=== PATIENT | female | born 1930 | race Caucasian/White ===

== ENCOUNTER 2016-08-20 09:02 | Inpatient (IN) | payer MEDICARE ==
[2016-08-20] MEDS ORDERED: Albuterol/Ipratropium NEB.SOL* Albuterol 2.5 MG/Ipratropium 0.5 MG 3 ML INH ONE ×2 (09:36→10:58)
--- NOTE | 2016-08-20 09:43 | ED ---
Shortness of Breath - HPI Summary HPI Summary: Patient presents for delayed evaluation of shortness of breath with preceding URI/nasal congestion for the last 6 days. Denies any positional or exertional compnent, systemic symptoms, allev factors attempted, recent antibiotics or antipyretics. Several sick contacts at the nursing facility. She was slightly confused and so the called EMS this morning. The nasal cannula made her feel better, so they deferred ED transport. - History of Current Complaint Chief Complaint: EDWeakness Time Seen by Provider: 08/20/16 09:21 Hx Obtained From: Patient, Family/Green Plumber Onset/Duration: Gradual Onset Timing: Constant Current Severity: Moderate Associated Signs & Symptoms: Cough (Productive), Wheezing - Allergy/Home Medications Allergies/Adverse Reactions: Allergies Allergy/AdvReac Type Severity Reaction Status Date / Time Acetaminophen [From Tylenol] Allergy Severe Vomiting Verified 08/20/16 09:14 Levofloxacin [From Levaquin] Allergy Severe Nausea Verified 08/20/16 09:14 Metronidazole [From Flagyl] Allergy Severe Nausea Verified 08/20/16 09:14 Amoxicillin Allergy Intermediate Hives Verified 08/20/16 09:14 PMH/Surg Hx/FS Hx/Imm Hx Endocrine/Hematology History: Denies: Hx Diabetes, Hx Thyroid Disease Cardiovascular History: Reports: Hx Coronary Artery Disease, Hx Hypertension, Hx Syncope Denies: Hx Pacemaker/ICD Respiratory History: Denies: Hx Asthma, Hx Chronic Obstructive Pulmonary Disease (COPD) GI History: Denies: Hx Ulcer Musculoskeletal History: Reports: Hx Arthritis, Hx Osteoporosis, Other Musculoskeletal History - both hips replaced Sensory History: Reports: Hx Hearing Aid Psychiatric History: Denies: Hx Panic Disorder - Surgical History Surgery Procedure, Year, and Place: both hips,cataracts,finger,appy. Infectious Disease History: No Infectious Disease History: Denies: Hx Clostridium Difficile, Hx Hepatitis, Hx Human Immunodeficiency Virus (HIV), Hx of Known/Suspected MRSA, Hx Shingles, Hx Tuberculosis, Traveled Outside the [place] in Last 30 Days - Social History Substance Use Type: Reports: None Hx Tobacco Use: No Smoking Status (MU): Never Smoked Tobacco Review of Systems Constitutional: Negative Negative: Fever, Chills Eyes: Negative Positive: Other - Clear nasal congestion Cardiovascular: Negative Negative: Palpitations, Chest Pain Positive: Shortness Of Breath, Cough Gastrointestinal: Negative Negative: Abdominal Pain, Vomiting, Diarrhea, Nausea Musculoskeletal: Negative Negative: Arthralgia, Myalgia Skin: Negative Neurological: Negative Positive: Weakness. Negative: Headache, Syncope All Other Systems Reviewed And Are Negative: Yes Physical Exam Triage Information Reviewed: Yes Vital Signs On Initial Exam: Initial Vitals Temp Pulse Resp BP Pulse Ox 99.6 F 64 16 115/52 94 08/20/16 09:04 08/20/16 09:04 08/20/16 09:04 08/20/16 09:04 08/20/16 09:04 Vital Signs Reviewed: Yes Appearance: Positive: Well-Appearing, No Pain Distress, Well-Nourished. Negative: Ill-Appearing Skin: Positive: Warm, Skin Color Reflects Adequate Perfusion, Dry Head/Face: Positive: Normal Head/Face Inspection Eyes: Positive: Normal, EOMI, MIRTHA, Conjunctiva Clear. Negative: Discharge ENT: Positive: Hearing grossly normal, Pharyngeal erythema, Nasal congestion, TM dull. Negative: Nasal drainage, Tonsillar swelling, Tonsillar exudate, Trismus, Muffled/hoarse voice Neck: Positive: Supple, Nontender, No Lymphadenopathy. Negative: Nuchal Rigidity, Enlarged Nodes @ Respiratory/Lung Sounds: Positive: Breath Sounds Present, Wheezes. Negative: Unable to speak in full sentences Cardiovascular: Positive: Normal, RRR, Pulses are Symmetrical in both Upper and Lower Extremities Abdomen Description: Positive: Nontender, No Organomegaly Musculoskeletal: Positive: Normal, Strength/ROM Intact Neurological: Positive: Normal, Sensory/Motor Intact, Alert, Oriented to Person Place, Time, CN Intact II-III, Reflexes Intact, NV Bundle Intact Distally, Normal Gait. Negative: Disoriented, Slurred Speech, Dysphagia Diagnostics - Vital Signs Vital Signs Temp Pulse Resp BP Pulse Ox 08/20/16 09:04 99.6 F 64 16 115/52 94 - Laboratory Result Diagrams: 08/20/16 10:00 08/20/16 10:00 Lab Statement: Any lab studies that have been ordered have been reviewed, and results considered in the medical decision making process. - EKG HR 63 in Normal Sinus Rhythm. No inverted T waves. Normal MA/QRS/QTC Cardiac Rate: NL EKG Rhythm: Sinus Rhythm Course/Dx - Diagnoses Differential Diagnosis/HQI/PQRI: Positive: Bronchitis, CHF, TN, Pneumonia, Other - Primary concern for URI induced bronchitis with bronchospasm; however, with CAD history will evaluate for ACS and occult pneumonia. No focal lung sounds, recent antibiotics or antipyretics to mask classic presentation. Nontoxic appearing and not confused on exam. Minimally dehydrated on physical exam. Provider Diagnoses: Hypoxia, Acute hyponatremia, Bronchitis with bronchospasm - Physician Notifications Discussed Care of Patient With: 11:[address] Lewis, the patient's PCP, paged to discuss the acute hyponatremia. This is unclear etiology, but lower than previous 1 year of 125 esequiel. He felt as if patient should be admitted for the shortness of breath and acute hyponatremia. We reviewed the records from Dr. Ted Poe of the [facility] in [place] with last visit in Apr 2016. We also discussed the lower sodium and possible HCTZ cause and to hold and monitor in patient. After reviewing the lab results and CT, as well as PCP discussion, no change to the HCTZ prescription in 3 years. We discussed that the intermittent confusion earlier today may have been from the hypoxia or hyponatremia, or neither. She agreed to admission. 11:58a Dr. Newton to admit after discussion of PCP records/Neurobiologist records, lack of medication changes to account for hyponatremia, requiring oxygen for the hypoxia and lack of PE on CTA. He agrees to plan of care. Time Discussed With Above Provider: 11:09 Instructed by Provider To: Admit As Inpatient - Critical Care Time Critical Care Time: 30-74 min - Hypoxia requiring supplemental oxygen. Acute hyponatremia that was discussed with PCP and Hospitalist. Discharge - Discharge Plan Condition: Stable Disposition: ADMITTED TO [facility]
--- NOTE | 2016-08-20 10:07 | RAD ---
INDICATION: Congestion COMPARISON: April 04, 2013 TECHNIQUE: PA and lateral dual-energy views were obtained. FINDINGS: Bones/Soft Tissues: There are no acute bony findings. Cardiomediastinal: The cardiomediastinal silhouette is normal. Lungs: There are no infiltrates. Pleura: There are no pleural effusions. Other: None IMPRESSION: NO ACTIVE DISEASE.
[2016-08-20 10:22] LABS: Hematocrit 39 % (35-47); Mean Corpuscular HGB Conc 34 g/dl (31-36); Mean Corpuscular Hemoglobin 31 pg (27-31); Mean Corpuscular Volume 92 fL (80-97); Mean Platelet Volume 9 um3 (7.4-10.4); Red Blood Count 4.19 10^6/ul (4.0-5.4); Red Cell Distribution Width 13 % (10.5-15); White Blood Count 12.3 10^3/ul (3.5-10.8)
[2016-08-20 10:39] LABS: BUN/Creatinine Ratio 19.5 (8-20); Calcium 9.8 mg/dL (8.6-10.3); EGFR African American 91.8 (>60); EGFR Non-African American 71.4 (>60); Potassium 3.7 mmol/L (3.5-5.0)
[2016-08-20 10:40] LABS: Troponin I 0.01 ng/mL (<0.04)
[2016-08-20] MEDS ORDERED: Iohexol 350* (CONTRAST) 500 ML MDV IV ONE (10:51)
--- NOTE | 2016-08-20 11:40 | RAD ---
Indication: Shortness of breath, evaluate for pulmonary emboli. CTA of the chest was performed after IV contrast administration. Coronal and sagittal reconstructed images were obtained. Administered 63.0 ml of OMNIPAQUE 350 mgi/ml was injected intravenously. Inferior thyroid lobes are unremarkable. No mediastinal or hilar adenopathy is noted. There is cardiomegaly without pericardial effusion. The pulmonary arterial tree is well opacified. There are no filling defects present to suggest pulmonary embolus. The heart demonstrates no pericardial effusion. Atherosclerotic aorta is noted. No evidence of aortic dissection is noted. Heart demonstrates no pericardial effusion. The trachea and major bronchi appear patent. The lung barbosa demonstrate some dependent changes in the right lung base with suggestion of scarring. No alveolar consolidation is noted. The visualized abdominal organs are otherwise unremarkable were visualized. IMPRESSION: No evidence of pulmonary emboli is noted. No evidence of aortic dissection is noted.
[2016-08-20] MEDS ORDERED: Acetaminophen TAB* 325 MG PO PRN (11:57)
[2016-08-20] MEDS ORDERED: Ondansetron INJ* 2 MG/ML VIAL IV PRN (11:57)
[2016-08-20] MEDS ORDERED: traMADol TAB* 50 MG PO PRN (12:26)
[2016-08-20] MEDS ORDERED: Levalbuterol HFA INHALER* 1 PUFF MDI INH PRN (12:26)
[2016-08-20] MEDS ORDERED: NS 0.9% 1000 ML* 1,000 ML IV SCH (12:30)
[2016-08-20] MEDS ORDERED: Albuterol/Ipratropium NEB.SOL* Albuterol 2.5 MG/Ipratropium 0.5 MG 3 ML INH PRN (12:53)
[2016-08-20 13:09] LABS: Urine Bacteria Absent (Absent); Urine Bilirubin Negative (Negative); Urine Glucose Negative (Negative); Urine Nitrite Negative (Negative)
[2016-08-20 13:41] LABS: TSH (Thyroid Stimulating Horm) 3.32 mcIU/mL (0.34-5.60)
[2016-08-20] MEDS: Heparin VIAL(*) 5000 UNITS/ML VIAL (FIVE THOUSAND) SUBCUT SCH ×2 (14:22→22:20)
--- NOTE | 2016-08-20 16:46 | HP ---
HISTORY AND PHYSICAL: DATE OF ADMISSION: 08/20/16 PRIMARY CARE PROVIDER: Dr. Cadena. ATTENDING PHYSICIAN WHILE IN THE HOSPITAL: Dr. Denzel Newton* (report being dictated by Thalia Terry NP) CHIEF COMPLAINT: 1. Cough. 2. Sore throat. 3. Rhinorrhea. HISTORY OF PRESENT ILLNESS: Ms. Mazariegos is an 86-year-old female patient that over the last week she started out having rhinorrhea. She said she gets a yearly cold and this feels very similar to her symptoms, which she has had in the past. She carries a history of hypertension, glaucoma, hyperlipidemia, CAD , and history of GA. She states that last week she has progressed having rhinorrhea, now last couple of days having sore throat, temperature 99.6, she has been coughing, it has been a clear productive cough. She has been hearing upper wheezing at times. She states she has been taking respiratory treatments at home that she has access to which have been helping her. She was concerned today, however, because she was still continuing to cough, the sore throat was not getting any better. She felt that it was most likely still a viral illness , but she was concerned and her was concerned and urged her to come to the ER. She states she has been trying to drink fluid. In addition to this, she has also been taking her hydrochlorothiazide as prescribed. She has been drinking tea at night, trying over- the-counter cough suppressants, but this has not been helping her. She also states that she has noted that she has been feeling weak as well and she also felt that she may have been little confused last night, so these were the reasons why she came into the ER. She does state that it hurts to cough in her chest. She denies having any abdominal pain. She had one episode of vomiting this morning. She is evaluated in the ER, it was found that she had a low sodium, and the hospitalist service was asked to evaluate for admission. PAST MEDICAL HISTORY: Significant for: 1. Hypertension. 2. Hyperlipidemia. 3. Glaucoma. 4. CAD. 5. GA. PAST SURGICAL HISTORY: She has had: 1. Bilateral hip replacements. 2. Appendectomy. 3. Tonsillectomy. 4. Cataracts. 5. Cardiac catheterization. HOME MEDICATIONS: Include: 1. Aerospan 2 puffs inhaled b.i.d. 2. Crestor 20 mg at bedtime. 3. Calcium and vitamin D 1 tablet p.o. twice a day. 4. Levocetirizine 5 mg a day. 5. Tylenol 650 mg p.o. daily as needed. 6. Valsartan/hydrochlorothiazide 1 tab p.o. daily. 7. Xopenex 2 puffs inhaled every 4 hours. 8. Zantac 75 mg p.o. daily. 9. Tramadol 50 mg every 8 hours as needed. 10. Debrox 5 drops both ears monthly. 11. Lumigan 1 drop right eye daily. 12. Nitro 0.4 mg sublingual q.5 minutes p.r.n. chest pain. 13. Estrace vaginal application 0.5 twice a week. 14. Ipratropium bromide 0.06% both nares every 8 hours. 15. Timolol 1 drop both eyes daily. 16. Multivitamin 1 tablet daily. 17. Toprol-XL 50 mg daily. 18. Aspirin 81 mg daily. ALLERGIES TO MEDICATIONS: Include TYLENOL, LEVAQUIN, FLAGYL, AMOXICILLIN. FAMILY HISTORY: Mother had dementia. Father had a history of GA and TIA. SOCIAL HISTORY: She does not smoke. She does not drink. There is no drug use. Surrogate decision maker is her . She lives at [facility]. REVIEW OF SYSTEMS: There is no documented fever. She denied having any significant weight change. There was no double vision. There is no ear discharge. There was rhinorrhea. There is sore throat. There was a cough. There is dyspnea on exertion, chest pain with cough. There was one episode of nausea and vomiting. No abdominal pain. No dysuria, no frequency. No seizure, no loss of consciousness. No pruritus, no skin ulceration. Review of 14 systems completed, all others negative. PHYSICAL EXAMINATION GENERAL: At this time, Ms. Mazariegos is an 86-year-old female patient. She appears to be well nourished, does not appear to be in any acute distress. VITAL SIGNS: Reveal blood pressure 134/60, pulse is 71, respirations 14, O2 sat 99%, temperature 99.6. HEENT: Head: Atraumatic, normocephalic. Eyes: Sclerae anicteric and not pale. Throat: Oral mucosa appears to be moist. No oropharyngeal erythema. NECK: Supple. LUNGS: Clear to auscultation bilaterally. No wheezes, rales, or rhonchi. HEART: Sounds S1 and S2. Regular rate and rhythm. No murmurs, rubs, or gallops. ABDOMEN: Soft, flat, and nontender. Bowel sounds are present. EXTREMITIES: Pulses 2+ throughout. No peripheral edema. NEUROLOGICAL: She is awake, alert, and oriented x3. No gross focal deficits. SKIN: Grossly intact. DIAGNOSTIC STUDIES/LAB DATA: Today revealed WBC of 12.3, RBC 4.19, hemoglobin 13.0, hematocrit 39, platelet count of 232. Sodium 120, potassium 3.7, chloride 85, bicarb 26, BUN 15, creatinine 0.77, glucose 126, calcium 9.8. Trops 0.01. BNP is 560. Influenza is negative. She had a chest thorax CTA, which showed no evidence of pulmonary emboli is noted. No evidence of aortic dissection. She had a chest x-ray as well today when on my review, I did not appreciate any acute infiltrates or pulmonary vascular congestion. Radiology read it as no acute disease. EKG today showed a normal sinus rhythm, rate of 63. No ST elevations or T-wave inversions. Old medical records were reviewed. ASSESSMENT AND PLAN: Ms. Mazariegos is an 86-year-old female patient coming in today with complaints of weakness, cough, rhinorrhea. She will be admitted under observation status for: 1. Upper respiratory infection. At this point, I suspect she has bronchitis which is probably viral. She does have a slight white count, but she has been afebrile. I think at this point we can hold on antibiotics. Should she spike a fever, I then have a low threshold to start her on some antibiotics, but the chest x-ray and CTA are negative. I will continue with supportive care, p.r.n. nebs, and continue to follow. Probably a viral illness and needs to run its course. 2. Hyponatremia. It is probably multifactorial, probably secondary to dehydration in setting of an acute illness. In addition to this, she has also been taking hydrochlorothiazide, we are going to stop this. We will check serum osmol, urine osmol, urine sodium, TSH, and cortisol, and we will treat her appropriately. I am going to give her 2 L of saline and we will go ahead and repeat her BMP later today to make sure her sodium is rising appropriately. I do not think she needs 3% at this point. 3. Hypertension. Continue meds as prescribed. 4. Glaucoma. Continue meds as prescribed. 5. Hyperlipidemia. Continue meds as prescribed. 6. Coronary artery disease. Continue her metoprolol, aspirin, and her Crestor. 7. DVT prophylaxis. She will be placed on heparin subcu. 8. Code status. Full. She actually wishes to be a DNR. She states she has a form filled out. 9. Fluids, electrolytes, and nutrition. She can have a heart-healthy diet. TIME SPENT: On the admission was 60 minutes, greater than half the time was spent [id number] with the patient obtaining history and physical, the other half of the time was spent going over the plan of care with the patient and implementing the plan of care. I did discuss the plan of care with my attending , Dr. Newton; he is in agreement. THALIA TERRY NP CC: Dr. Cadena * [id number]/CPS #: [id number] LETY
[2016-08-20 19:11] LABS: Potassium 3.5 mmol/L (3.5-5.0)
[2016-08-20 19:44] LABS: BUN/Creatinine Ratio 18.2 (8-20); Calcium 8.8 mg/dL (8.6-10.3); EGFR African American 78.7 (>60); EGFR Non-African American 61.2 (>60)
[2016-08-20] MEDS: Atorvastatin* 40 MG TAB PO SCH (20:21)
[2016-08-20] MEDS: Latanoprost 0.005%* 2.5 ml BTL RIGHT EYE SCH (20:26)
[2016-08-20] MEDS: FLUNISOLIDE INH SCH (20:42)
[2016-08-21 00:44] LABS: BUN/Creatinine Ratio 18.6 (8-20); Calcium 8.7 mg/dL (8.6-10.3); EGFR African American 102.5 (>60); EGFR Non-African American 79.7 (>60); Potassium 3.1 mmol/L (3.5-5.0)
[2016-08-21 05:58] LABS: Hematocrit 31 % (35-47); Hemoglobin 10.6 g/dl (12.0-16.0); Mean Corpuscular HGB Conc 34 g/dl (31-36); Mean Corpuscular Hemoglobin 31 pg (27-31); Mean Corpuscular Volume 92 fL (80-97); Mean Platelet Volume 9 um3 (7.4-10.4); Red Blood Count 3.36 10^6/ul (4.0-5.4); Red Cell Distribution Width 13 % (10.5-15); White Blood Count 9.5 10^3/ul (3.5-10.8)
[2016-08-21 06:02] LABS: Add Diff/Slide Review? Slide Review Added; Comments Flag Yes
[2016-08-21 06:17] LABS: BUN/Creatinine Ratio 17.2 (8-20); Calcium 8.6 mg/dL (8.6-10.3); EGFR African American 113.7 (>60); EGFR Non-African American 88.4 (>60); Potassium 3.1 mmol/L (3.5-5.0)
[2016-08-21] MEDS: Heparin VIAL(*) 5000 UNITS/ML VIAL (FIVE THOUSAND) SUBCUT SCH ×3 (06:23→20:26)
[2016-08-21] MEDS: Aspirin EC Low Dose* 81 MG TAB.EC PO SCH (09:27)
[2016-08-21] MEDS: Metoprolol Succinate XL TAB* 50 MG PO SCH (09:27)
[2016-08-21] MEDS: Valsartan TAB* 160 MG PO SCH (09:27)
[2016-08-21] MEDS: Famotidine TAB* 20 MG PO SCH (09:27)
[2016-08-21] MEDS: Timolol 0.5% OPTH.SOL* BTL BOTH EYES SCH (09:29)
[2016-08-21] MEDS: FLUNISOLIDE INH SCH ×2 (09:31→20:25)
[2016-08-21] MEDS ORDERED: Docusate CAP* 100 MG PO PRN (15:36)
--- NOTE | 2016-08-21 15:43 | PN ---
Subjective Date of Service: 08/21/16 Interval History: Pt is feeling better. She notes that her cough is less today. She still describes a hacking cough that originates in her throat. No sputum. She feels slightly spacey. Objective Active Medications: Acetaminophen (Tylenol Tab*) 650 mg PO Q4H PRN PRN Reason: FEVER/PAIN Aspirin (Aspirin Ec Low Dose*) 81 mg PO DAILY [facility] Last Admin: 08/21/16 09:27 Dose: 81 mg Atorvastatin Calcium (Lipitor*) 40 mg PO BEDTIME [facility] Last Admin: 08/20/16 20:21 Dose: 40 mg Docusate Sodium (Colace Cap*) 100 mg PO BID PRN PRN Reason: CONSTIPATION Famotidine (Pepcid Tab*) 10 mg PO DAILY [facility] Last Admin: 08/21/16 09:27 Dose: 10 mg Heparin Sodium (Porcine) (Heparin Vial(*)) 5,000 units SUBCUT Q8HR [facility] Last Admin: 08/21/16 14:11 Dose: 5,000 units Latanoprost (Xalatan 0.005%*) 1 drop RIGHT EYE 2100 [facility] PRN Reason: Protocol Last Admin: 08/20/16 20:26 Dose: Not Given Levalbuterol HCl (Xopenex Hfa Inhaler*) 2 puff INH Q4HR PRN PRN Reason: SHORTNESS OF BREATH Metoprolol Succinate (Toprol Xl Tab*) 50 mg PO DAILY [facility] Last Admin: 08/21/16 09:27 Dose: 50 mg Non-Formulary Medication (Flunisolide Hfa [Aerospan]) 2 puff INH BID [facility] Last Admin: 08/21/16 09:31 Dose: Not Given Ondansetron HCl (Zofran Inj*) 4 mg IV Q4H PRN PRN Reason: NAUSEA/VOMITING Timolol Maleate (Timoptic 0.5% Opth*) 1 drop BOTH EYES DAILY [facility] Last Admin: 08/21/16 09:29 Dose: 1 drop Tramadol HCl (Ultram*) 50 mg PO Q8HR PRN PRN Reason: PAIN Valsartan (Diovan Tab*) 160 mg PO DAILY [facility] Last Admin: 08/21/16 09:27 Dose: Not Given Vital Signs 08/20/16 08/20/16 08/20/16 16:00 16:16 20:00 Temperature 98.1 F Pulse Rate 62 71 Respiratory 16 16 Rate Blood Pressure 107/54 (mmHg) O2 Sat by Pulse 99 98 91 Oximetry 08/20/16 08/20/16 08/21/16 20:24 23:41 00:00 Temperature 98.4 F 99.0 F Pulse Rate 69 71 Respiratory 20 16 Rate Blood Pressure 119/52 112/45 (mmHg) O2 Sat by Pulse 98 98 98 Oximetry 08/21/16 08/21/16 08/21/16 04:31 08:00 08:10 Temperature 98.3 F 98.4 F Pulse Rate 67 72 Respiratory 15 16 18 Rate Blood Pressure 113/42 115/52 (mmHg) O2 Sat by Pulse 97 96 Oximetry 08/21/16 15:18 Temperature 99.2 F Pulse Rate 67 Respiratory 20 Rate Blood Pressure 117/55 (mmHg) O2 Sat by Pulse 98 Oximetry Oxygen Devices in Use Now: Nasal Cannula - 2L-98% Appearance: Elderly female sitting up in bed, NAD Eyes: No Scleral Icterus Ears/Nose/Mouth/Throat: Mucous Membranes Moist Respiratory: Symmetrical Chest Expansion and Respiratory Effort, Clear to Auscultation Cardiovascular: NL Sounds; No Murmurs; No JVD, RRR, No Edema Abdominal: NL Sounds; No Tenderness; No Distention Extremities: No Clubbing, Cyanosis Skin: No Rash or Ulcers, No Nodules or Sclerosis Neurological: Alert and Oriented x 3 Result Diagrams: 08/21/16 05:35 08/21/16 05:35 Microbiology and Other Data: Microbiology 08/20/16 12:47 Urine Culture - Final Urine Assess/Plan/Problems-Billing Ms Mazariegos is an 86 yo F who has a h/o HTN, chronic hyponatremia (~130), hyperlipidemia and CAD who presented to the ER with c/o cough, sore throat and rhinnorhea, she was admitted for hyponatremia. 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 Her Na level worsened with the administration of NS. She has since been placed on a fluid restriction. Continue to restrict to 1200ml/day. Follow up Na level tomorrow. Discontinue HCTZ all together. (2) URI (upper respiratory infection) Current Visit: Yes Status: Acute Code(s): J06.9 - ACUTE UPPER RESPIRATORY INFECTION, UNSPECIFIED SNOMED Code(s): 31066038 Comment: Likely viral URI. Improving despite withholding Abx. Continue symptomatic care. (3) HTN (hypertension) Current Visit: Yes Status: Acute Code(s): I10 - ESSENTIAL (PRIMARY) HYPERTENSION SNOMED Code(s): 86596338 Comment: BP is under good control despite being off her valsartan/HCTZ. Continue to monitor BP. (4) Hyperlipidemia Current Visit: Yes Status: Acute Code(s): E78.5 - HYPERLIPIDEMIA, UNSPECIFIED SNOMED Code(s): 45422892 Comment: Continue statin. (5) DVT prophylaxis Current Visit: Yes Status: Acute Code(s): WMU1791 - SNOMED Code(s): 284951891 Comment: SQ heparin (6) DNR (do not resuscitate) Current Visit: Yes Status: Acute
[2016-08-21] MEDS ORDERED: Saline NASAL SPRAY 0.65%* BTL BOTH NARES PRN (15:44)
[2016-08-21] MEDS ORDERED: Potassium Chlor TAB* 20 MEQ TAB.ER PO ONE (15:44)
[2016-08-21] MEDS: Atorvastatin* 40 MG TAB PO SCH (20:23)
[2016-08-21] MEDS: Latanoprost 0.005%* 2.5 ml BTL RIGHT EYE SCH (20:25)
[2016-08-22] MEDS: Heparin VIAL(*) 5000 UNITS/ML VIAL (FIVE THOUSAND) SUBCUT SCH ×3 (06:06→22:30)
[2016-08-22 06:16] LABS: BUN/Creatinine Ratio 19.7 (8-20); Calcium 8.8 mg/dL (8.6-10.3); EGFR African American 100.9 (>60); EGFR Non-African American 78.4 (>60); Potassium 3.6 mmol/L (3.5-5.0)
[2016-08-22] MEDS: Valsartan TAB* 160 MG PO SCH (08:28)
[2016-08-22] MEDS: Metoprolol Succinate XL TAB* 50 MG PO SCH (08:28)
[2016-08-22] MEDS: Aspirin EC Low Dose* 81 MG TAB.EC PO SCH (08:29)
[2016-08-22] MEDS: Famotidine TAB* 20 MG PO SCH (08:29)
[2016-08-22] MEDS: Timolol 0.5% OPTH.SOL* BTL BOTH EYES SCH (08:29)
[2016-08-22] MEDS: FLUNISOLIDE INH SCH ×2 (08:34→23:22)
--- NOTE | 2016-08-22 11:27 | PN ---
Subjective Date of Service: 08/22/16 Interval History: Pt is feeling well but still not quite at her baseline. No SOB. She has still been coughing some. No sputum. Objective Active Medications: Acetaminophen (Tylenol Tab*) 650 mg PO Q4H PRN PRN Reason: FEVER/PAIN Aspirin (Aspirin Ec Low Dose*) 81 mg PO DAILY [facility] Last Admin: 08/22/16 08:29 Dose: 81 mg Atorvastatin Calcium (Lipitor*) 40 mg PO BEDTIME [facility] Last Admin: 08/21/16 20:23 Dose: 40 mg Docusate Sodium (Colace Cap*) 100 mg PO BID PRN PRN Reason: CONSTIPATION Last Admin: 08/21/16 15:53 Dose: 100 mg Famotidine (Pepcid Tab*) 10 mg PO DAILY [facility] Last Admin: 08/22/16 08:29 Dose: 10 mg Heparin Sodium (Porcine) (Heparin Vial(*)) 5,000 units SUBCUT Q8HR [facility] Last Admin: 08/22/16 06:06 Dose: 5,000 units Latanoprost (Xalatan 0.005%*) 1 drop RIGHT EYE 2100 [facility] PRN Reason: Protocol Last Admin: 08/21/16 20:25 Dose: 1 drop Levalbuterol HCl (Xopenex Hfa Inhaler*) 2 puff INH Q4HR PRN PRN Reason: SHORTNESS OF BREATH Metoprolol Succinate (Toprol Xl Tab*) 50 mg PO DAILY [facility] Last Admin: 08/22/16 08:28 Dose: 50 mg Non-Formulary Medication (Flunisolide Hfa [Aerospan]) 2 puff INH BID [facility] Last Admin: 08/22/16 08:34 Dose: Not Given Ondansetron HCl (Zofran Inj*) 4 mg IV Q4H PRN PRN Reason: NAUSEA/VOMITING Sodium Chloride (Sodium Chloride 0.65% Nasal Hopkins*) 2 spray BOTH NARES Q4H PRN PRN Reason: dryness Timolol Maleate (Timoptic 0.5% Opth*) 1 drop BOTH EYES DAILY [facility] Last Admin: 08/22/16 08:29 Dose: 1 drop Tramadol HCl (Ultram*) 50 mg PO Q8HR PRN PRN Reason: PAIN Valsartan (Diovan Tab*) 160 mg PO DAILY [facility] Last Admin: 08/22/16 08:28 Dose: 160 mg Vital Signs 08/21/16 08/21/16 08/21/16 15:18 15:43 19:28 Temperature 99.2 F 97.9 F Pulse Rate 67 70 72 Respiratory 20 16 20 Rate Blood Pressure 117/55 109/53 (mmHg) O2 Sat by Pulse 98 99 99 Oximetry 08/21/16 08/21/16 08/22/16 20:00 23:27 00:00 Temperature 98.7 F Pulse Rate 74 Respiratory 20 16 Rate Blood Pressure 126/53 (mmHg) O2 Sat by Pulse 99 Oximetry 08/22/16 08:00 Temperature Pulse Rate Respiratory 18 Rate Blood Pressure (mmHg) O2 Sat by Pulse Oximetry Oxygen Devices in Use Now: Nasal Cannula - 2L-99% Appearance: Elderly female sitting up in bed, NAD Eyes: No Scleral Icterus Ears/Nose/Mouth/Throat: Mucous Membranes Moist Respiratory: Symmetrical Chest Expansion and Respiratory Effort, Clear to Auscultation Cardiovascular: NL Sounds; No Murmurs; No JVD, RRR, No Edema Abdominal: NL Sounds; No Tenderness; No Distention Extremities: No Clubbing, Cyanosis Skin: No Rash or Ulcers, No Nodules or Sclerosis Neurological: Alert and Oriented x 3 Result Diagrams: 08/21/16 05:35 08/22/16 05:08 Microbiology and Other Data: Microbiology 08/20/16 12:47 Urine Culture - Final Urine Assess/Plan/Problems-Billing Ms Mazariegos is an 86 yo F who has a h/o HTN, chronic hyponatremia (~130), hyperlipidemia and CAD who presented to the ER with c/o cough, sore throat and rhinnorhea, she was admitted for hyponatremia. 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 Na level slightly improved some today. Will continue 1200ml fluid restriction. Follow up Na level tomorrow AM. I do not feel comfortable sending her home today as her Na level is still just marginal. (2) URI (upper respiratory infection) Current Visit: Yes Status: Acute Code(s): J06.9 - ACUTE UPPER RESPIRATORY INFECTION, UNSPECIFIED SNOMED Code(s): 53105686 Comment: Likely viral URI. Improving. Continue symptomatic care. (3) HTN (hypertension) Current Visit: Yes Status: Acute Code(s): I10 - ESSENTIAL (PRIMARY) HYPERTENSION SNOMED Code(s): 58622333 Comment: BP is under good control. Continue valsartan. (4) Hyperlipidemia Current Visit: Yes Status: Acute Code(s): E78.5 - HYPERLIPIDEMIA, UNSPECIFIED SNOMED Code(s): 63060421 Comment: Continue statin. (5) DVT prophylaxis Current Visit: Yes Status: Acute Code(s): ONR9617 - SNOMED Code(s): 284696851 Comment: SQ heparin (6) DNR (do not resuscitate) Current Visit: Yes Status: Acute
[2016-08-22] MEDS ORDERED: Polyethylene Glycol 3350* 17 GM PACKET PO PRN (16:56)
[2016-08-22] MEDS: Atorvastatin* 40 MG TAB PO SCH (22:30)
[2016-08-22] MEDS: Latanoprost 0.005%* 2.5 ml BTL RIGHT EYE SCH (22:30)
[2016-08-23] MEDS: Heparin VIAL(*) 5000 UNITS/ML VIAL (FIVE THOUSAND) SUBCUT SCH (05:44)
[2016-08-23 06:42] LABS: BUN/Creatinine Ratio 27.1 (8-20); Calcium 8.6 mg/dL (8.6-10.3); EGFR African American 102.5 (>60); EGFR Non-African American 79.7 (>60); Potassium 3.8 mmol/L (3.5-5.0)
[2016-08-23 07:42] VITALS: BP 101/47
[2016-08-23] MEDS: Timolol 0.5% OPTH.SOL* BTL BOTH EYES SCH (09:43)
[2016-08-23] MEDS: Valsartan TAB* 160 MG PO SCH (09:43)
[2016-08-23] MEDS: Famotidine TAB* 20 MG PO SCH (09:43)
[2016-08-23] MEDS: Metoprolol Succinate XL TAB* 50 MG PO SCH (09:44)
[2016-08-23] MEDS: Aspirin EC Low Dose* 81 MG TAB.EC PO SCH (09:44)
[2016-08-23] MEDS: FLUNISOLIDE INH SCH (09:52)
--- NOTE | 2016-08-23 10:49 | PN ---
Subjective Date of Service: 08/23/16 Interval History: Pt is feeling well. She feels ready to go home. She states her cough has improved but is still present. Objective Active Medications: Acetaminophen (Tylenol Tab*) 650 mg PO Q4H PRN PRN Reason: FEVER/PAIN Aspirin (Aspirin Ec Low Dose*) 81 mg PO DAILY [facility] Last Admin: 08/23/16 09:44 Dose: 81 mg Atorvastatin Calcium (Lipitor*) 40 mg PO BEDTIME [facility] Last Admin: 08/22/16 22:30 Dose: 40 mg Docusate Sodium (Colace Cap*) 100 mg PO BID PRN PRN Reason: CONSTIPATION Last Admin: 08/21/16 15:53 Dose: 100 mg Famotidine (Pepcid Tab*) 10 mg PO DAILY [facility] Last Admin: 08/23/16 09:43 Dose: 10 mg Heparin Sodium (Porcine) (Heparin Vial(*)) 5,000 units SUBCUT Q8HR [facility] Last Admin: 08/23/16 05:44 Dose: 5,000 units Latanoprost (Xalatan 0.005%*) 1 drop RIGHT EYE 2100 [facility] PRN Reason: Protocol Last Admin: 08/22/16 22:30 Dose: 1 drop Levalbuterol HCl (Xopenex Hfa Inhaler*) 2 puff INH Q4HR PRN PRN Reason: SHORTNESS OF BREATH Metoprolol Succinate (Toprol Xl Tab*) 50 mg PO DAILY [facility] Last Admin: 08/23/16 09:44 Dose: 50 mg Non-Formulary Medication (Flunisolide Hfa [Aerospan]) 2 puff INH BID [facility] Last Admin: 08/23/16 09:52 Dose: Not Given Ondansetron HCl (Zofran Inj*) 4 mg IV Q4H PRN PRN Reason: NAUSEA/VOMITING Polyethylene Glycol/Electrolytes (Miralax*) 17 gm PO DAILY PRN PRN Reason: CONSTIPATION Last Admin: 08/23/16 09:43 Dose: 17 gm Sodium Chloride (Sodium Chloride 0.65% Nasal [place]*) 2 spray BOTH NARES Q4H PRN PRN Reason: dryness Timolol Maleate (Timoptic 0.5% Opth*) 1 drop BOTH EYES DAILY [facility] Last Admin: 08/23/16 09:43 Dose: 1 drop Tramadol HCl (Ultram*) 50 mg PO Q8HR PRN PRN Reason: PAIN Valsartan (Diovan Tab*) 160 mg PO DAILY [facility] Last Admin: 08/23/16 09:43 Dose: 160 mg Vital Signs 08/22/16 08/22/16 08/22/16 15:53 18:09 20:00 Temperature 97.6 F Pulse Rate 61 81 Respiratory 20 16 16 Rate Blood Pressure 111/52 (mmHg) O2 Sat by Pulse 93 93 Oximetry 08/23/16 08/23/16 08/23/16 00:13 02:21 06:02 Temperature 98.9 F Pulse Rate 77 64 Respiratory 16 20 Rate Blood Pressure 118/55 (mmHg) O2 Sat by Pulse 99 93 98 Oximetry 08/23/16 08/23/16 07:21 08:49 Temperature 98.2 F Pulse Rate 60 60 Respiratory 14 14 Rate Blood Pressure 101/47 (mmHg) O2 Sat by Pulse 100 96 Oximetry Oxygen Devices in Use Now: Nasal Cannula - 2L-98% Appearance: Elderly female sitting up in bed, NAD Eyes: No Scleral Icterus Ears/Nose/Mouth/Throat: Mucous Membranes Moist Respiratory: Symmetrical Chest Expansion and Respiratory Effort, Clear to Auscultation Cardiovascular: NL Sounds; No Murmurs; No JVD, RRR, No Edema Abdominal: NL Sounds; No Tenderness; No Distention Extremities: No Clubbing, Cyanosis Skin: No Rash or Ulcers, No Nodules or Sclerosis Neurological: Alert and Oriented x 3 Result Diagrams: 08/21/16 05:35 08/23/16 05:57 Microbiology and Other Data: Microbiology 08/20/16 12:47 Urine Culture - Final Urine Assess/Plan/Problems-Billing Ms Mazariegos is an 86 yo F who has a h/o HTN, chronic hyponatremia (~130), hyperlipidemia and CAD who presented to the ER with c/o cough, sore throat and rhinnorhea, she was admitted for hyponatremia. 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 Na level slightly improved again today. Will continue 1200ml fluid restriction. Na level to be rechecked 08/25/16 to ensure it is stable. (2) URI (upper respiratory infection) Current Visit: Yes Status: Acute Code(s): J06.9 - ACUTE UPPER RESPIRATORY INFECTION, UNSPECIFIED SNOMED Code(s): 86564860 Comment: Likely viral URI. Improving. Continue symptomatic care. (3) HTN (hypertension) Current Visit: Yes Status: Acute Code(s): I10 - ESSENTIAL (PRIMARY) HYPERTENSION SNOMED Code(s): 88573969 Comment: BP is under good control. Continue valsartan. (4) Hyperlipidemia Current Visit: Yes Status: Acute Code(s): E78.5 - HYPERLIPIDEMIA, UNSPECIFIED SNOMED Code(s): 23754682 Comment: Continue statin. (5) DVT prophylaxis Current Visit: Yes Status: Acute Code(s): QLW6873 - SNOMED Code(s): 592002274 Comment: SQ heparin (6) DNR (do not resuscitate) Current Visit: Yes Status: Acute Status and Disposition: d/c home
--- NOTE | 2016-08-24 11:12 | DS ---
DISCHARGE SUMMARY: DATE OF ADMISSION: 08/20/16 DATE OF DISCHARGE: 08/23/16 PRIMARY CARE PROVIDER: Dr. Cadena. PRINCIPAL DIAGNOSES: 1. Viral upper respiratory infection. 2. 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 SECONDARY DIAGNOSES: 1. Hypertension. 2. Hyperlipidemia. 3. Glaucoma. 4. Coronary artery disease. DISCHARGE MEDICATIONS: 1. Aerospan 2 puffs inhaled b.i.d. 2. Crestor 20 mg p.o. q.h.s. 3. Calcium plus D 1 tab p.o. b.i.d. 4. Xyzal 5 mg p.o. daily. 5. Tylenol 650 mg p.o. daily p.r.n. pain. 6. Xopenex 2 puffs inhaled q.4 hours p.r.n. shortness of breath. 7. Ranitidine 75 mg p.o. daily. 8. Tramadol 50 mg p.o. q.8 hours p.r.n. pain. 9. Debrox 5 drops both ears monthly. 10. Lumigan 1 drop to the right eye daily. 11. Nitroglycerin 0.4 mg SL q.5 minutes p.r.n. chest pain. 12. Estrace vaginal cream half an application vaginal twice weekly. 13. Ipratropium bromide nasal 1 squirt to both nostrils 3 times daily. 14. Timolol 1 drop to both eyes daily. 15. Multivitamin 1 tab p.o. daily. 16. Toprol-XL 50 mg p.o. q.h.s. 17. Aspirin 81 mg p.o. daily. 18. Valsartan 160 mg p.o. daily (combination valsartan and hydrochlorothiazide has been discontinued and this is its replacement). HOSPITAL COURSE: Ms. Mazariegos is an 86-year-old female who has a history of hypertension, coronary artery disease, and hyperlipidemia, who presents to the emergency room with complaints of cough, sore throat, and rhinorrhea. The patient developed these symptoms over the 1 week prior to admission. Additionally, she has had some low-grade fevers. The patient was felt that she most likely had a viral illness; however, in the emergency room, she was found to have hyponatremia, and because of this, she was admitted to the hospitalist service. In terms of the patient's complaint that brought her to the emergency room, I suspect this is likely a viral upper respiratory tract infection. Antibiotics were withheld as there was no clear evidence of bacterial infection. The patient does appear to be improving despite withholding antibiotics. In terms of the hyponatremia, the patient's sodium level was initially found to be 120. She is chronically hyponatremic with a baseline sodium level in the 130 to 131 range. The patient was given IV fluids, and with this, her sodium level dropped to 117. At that point, it was felt that the patient's hyponatremia was likely secondary to SIADH and she was fluid restricted. Additionally, the patient had been taking hydrochlorothiazide at baseline and this was discontinued. With the fluid restriction and withholding the hydrochlorothiazide, the patient's sodium level climbed to 126 on the day of discharge. The patient does state that she felt slightly off when her sodium was lower and now is feeling much improved. The patient is felt to be stable for discharge home today. Again, the patient's sodium level is chronically low at approximately 130. I suspect this is related to her hydrochlorothiazide use , which has now been discontinued indefinitely. The patient is to have a BMP obtained on 08/26/16. Of note, while the patient was sleeping, she has been found to be hypoxic. An attempt was made to perform a nocturnal oxygen desaturation study overnight from 08/22/16 to 08/23/16. Unfortunately, the study was not a valid study as she was placed on oxygen by the respiratory therapist for desaturation; however , we do not have 5 minutes of desaturation. Additionally, the patient does not qualify for supplemental oxygen at rest or with ambulation. I do recommend that the patient have an outpatient nocturnal desaturation study performed and this will be incredibly helpful to see if she does desaturate with sleep. The patient does state that she feels that she slept very well in the hospital and questions if this may have been related to the oxygen use. FOLLOWUP CONCERNS: The patient is being discharged home today, 08/23/16. She is to follow up with Dr. Cadena in the next 4 to 7 days. ACTIVITY LEVEL: As tolerated. DIET: Regular. CONDITION ON DISCHARGE: Stable. TIME SPENT: Thirty-five minutes were spent discharging this patient. CC: Dr. Cadena * [id number]/[facility] #: [id number] [facility]
== END 2016-08-23 12:40 | disposition home or self-care (01) | DRG 645 ==
LOC: ED 09:02 → MED 11:57 → OBSVTOIN 08-22 11:26
PROVIDERS: ADMIT Internal Medicine; ATTEND Hospitalist
DX: E22.2 Syndrome of inappropriate secretion of antidiuretic hormone (principal); I11.9 Hypertensive heart disease without heart failure; J06.9 Acute upper respiratory infection, unspecified; I25.10 Atherosclerotic heart disease of native coronary artery without angina pectoris; H40.9 Unspecified glaucoma; E78.5 Hyperlipidemia, unspecified; R09.02 Hypoxemia; Z96.643 Presence of artificial hip joint, bilateral; I25.2 Old myocardial infarction; Z79.82 Long term (current) use of aspirin; Z79.1 Long term (current) use of non-steroidal anti-inflammatories (NSAID); Z79.899 Other long term (current) drug therapy; Z88.6 Allergy status to analgesic agent; Z88.1 Allergy status to other antibiotic agents; Z88.8 Allergy status to other drugs, medicaments and biological substances; Z66 Do not resuscitate
CPT/HCPCS: 36415; 71020; 71275; 80048; 81003; 81015; 82533; 82570; 83880; 83930; 83935; 84300; 84443; 84484; 85025; 85610; 87077; 87086; 87502; 93005; 94640; 94760; 94762; A9270-GY; G0378; J1644; Q9967

== ENCOUNTER 2018-09-20 07:16 | Day surgery (SDC) | payer MEDICARE ==
[~2018-09-20 07:16] MED LIST: Acetaminophen TAB* 325 MG PO PRN; Buffered Lidocaine 1% SYRIN* 1 ML/SYRINGE INTRADERM ONE; mitoMYcin PWD* 0.2 MG in Sterile Water for Inj* 1 ML OPHTHALMIC SCH
[2018-09-20] MEDS ORDERED: Midazolam* 1 MG/ML 2 ML VIAL (2 MG) ONE (08:34)
[2018-09-20] MEDS ORDERED: fentaNYL* 50 MCG/ML 2 ML VIAL (100 MCG VIAL) ONE (09:24)
[2018-09-20] MEDS ORDERED: Ondansetron INJ* 2 MG/ML VIAL ONE (09:28)
[2018-09-20 09:45] VITALS: BP 129/58
--- NOTE | 2018-09-20 10:14 | OP ---
OPERATIVE NOTE: DATE OF OPERATION: 09/20/18 DATE OF : 34 SURGEON: Tam Cancino MD ANESTHESIA: Local MAC. PREOPERATIVE DIAGNOSIS: Open angle, right eye. POSTOPERATIVE DIAGNOSIS: Open angle, right eye. OPERATIVE PROCEDURE: XEN stent, right eye. COMPLICATIONS: None. DESCRIPTION OF PROCEDURE: The patient was given topical anesthetic after being prepped and draped in the usual sterile fashion with 2% lido with epinephrine. Lid speculum was placed. A 6-0 silk corne al traction suture was placed through the superior limbus and the eye rotated inferiorly. XEN stent was introduced subconjunctivally 7 mm posterior to the limbus at the 11 o'clock position, engaging th e sclera 3 mm posterior to the limbus and implanting the device with the shooter into the anterior ch alfred, then removed. The bleb formation was immediate. Paracentesis made at the 7 o'clock position w ith a 75 blade. Subconjunctival mitomycin-C 0.2 mg/mL injected near the site of the stent and then t he anterior chamber irrigated with balanced salt solution. Topical Maxitrol drops were given. [id number]/[facility] #: [id number]
[2018-09-20] MEDS ORDERED: Lidocaine 2% EPI 1:200000 MPF*10-20 ML VIAL ONE (10:20)
[2018-09-20] MEDS ORDERED: Lidocaine 1%* 5 ML VIAL ONE (10:20)
[2018-09-20] MEDS ORDERED: Neomycin/Polymy/Dex OPTH.SUSP* MAXITROL 0.1% 5 ML ONE (10:20)
[2018-09-20] MEDS ORDERED: Povidone Iodine 5% OPTH* 30 ML BTL ONE (10:20)
[2018-09-20] MEDS ORDERED: Proparacaine 0.5% OPHTH.SOL* 15 ML BTL ONE (10:20)
== END 2018-09-20 09:55 | disposition home or self-care (01) ==
LOC: OREAST 07:16
PROVIDERS: ATTEND Specialist
DX: H40.1113 Primary open-angle glaucoma, right eye, severe stage (principal); H44.23 Degenerative myopia, bilateral; I25.2 Old myocardial infarction; I10 Essential (primary) hypertension; J45.909 Unspecified asthma, uncomplicated; M19.90 Unspecified osteoarthritis, unspecified site
CPT/HCPCS: A9270-GY; C1725; J2250; J2405; J3010; J9280

== ENCOUNTER 2019-04-25 09:03 | Day surgery (SDC) | payer MEDICARE ==
[~2019-04-25 09:03] MED LIST changes: -Acetaminophen TAB* 325 MG PO PRN
[2019-04-25] MEDS ORDERED: Proparacaine 0.5% OPHTH.SOL* 15 ML BTL ONE ×2 (09:25→10:20)
[2019-04-25] MEDS ORDERED: Lidocaine 1% MPF ** 5 ML VIAL ONE (10:20)
[2019-04-25] MEDS ORDERED: Povidone Iodine 5% OPTH* 30 ML BTL ONE (10:20)
[2019-04-25] MEDS ORDERED: Neomycin/Polymy/Dex OPTH.SUSP* MAXITROL 0.1% 5 ML ONE (10:20)
[2019-04-25] MEDS ORDERED: Lidocaine 2% w/ EPI 1:200,000* 20 ML SDV VIAL ONE (10:20)
[2019-04-25] MEDS ORDERED: Carbachol 0.01% OPH.SOL* 1.5 ML OPHTH.SOLN ONE (12:03)
[2019-04-25] MEDS ORDERED: Midazolam* 1 MG/ML 2 ML VIAL (2 MG) ONE (12:30)
[2019-04-25] MEDS ORDERED: fentaNYL* 50 MCG/ML 2 ML VIAL (100 MCG VIAL) ONE (12:30)
[2019-04-25 12:51] VITALS: BP 139/56
--- NOTE | 2019-04-25 21:55 | OP ---
DATE OF OPERATION: 04/25/19 - [facility] DATE OF : 34 SURGEON: Tam Cancino M.D. ANESTHESIA: Local with MAC. PREOPERATIVE DIAGNOSIS: Glaucoma, left eye. POSTOPERATIVE DIAGNOSIS: Glaucoma, left eye. OPERATIVE PROCEDURE: Insertion of XEN stent, left eye. COMPLICATIONS: None. DESCRIPTION OF PROCEDURE: The patient was prepped and draped in the usual sterile fashion. Lid speculum was placed at the left eye. A paracentesis incision was made at the 2 o'clock position with a 75 blade. Anterior chamber was irrigated with 1% non-preservative intracameral lidocaine followed by Provisc. A 1.8 mm clear corneal incision was made at the 5 o'clock position. The XEN stent was placed at the 11 o'clock position without difficulty using a shooter. Mitomycin-C 0.2 mg/mL was injected subconjunctivally near the opening of the stent, 0.1 cc. The anterior chamber was irrigated with balanced salt solution. All wounds were checked and found to be watertight. [id number]/[facility] #: [id number] [facility]
== END 2019-04-25 12:58 | disposition home or self-care (01) ==
LOC: OREAST 09:03
PROVIDERS: ATTEND Specialist
DX: H40.1123 Primary open-angle glaucoma, left eye, severe stage (principal); Z96.1 Presence of intraocular lens; H44.23 Degenerative myopia, bilateral; J45.909 Unspecified asthma, uncomplicated; I10 Essential (primary) hypertension; I25.2 Old myocardial infarction; I25.10 Atherosclerotic heart disease of native coronary artery without angina pectoris; M19.90 Unspecified osteoarthritis, unspecified site
CPT/HCPCS: A9270-GY; C1725; J2250; J3010; J9280

== ENCOUNTER 2020-05-05 02:17 | Observation (INO) ==
[2020-05-05 02:58] LABS: ABS Eosinophils 0.3 10^3/ul (0-0.6); ABS Lymphocytes 1.4 10^3/ul (1.0-4.8); ABS Monocytes 0.6 10^3/ul (0-0.8); ABS Neutrophils 2.9 10^3/ul (1.5-7.7); Eosinophil % 6.6 %; Hematocrit 35 % (35-47); Hemoglobin 12.1 g/dL (12.0-16.0); Lymphocyte % 27.2 %; Mean Corpuscular HGB Conc 34 g/dL (31-36); Mean Corpuscular Hemoglobin 32 pg (27-31); Mean Corpuscular Volume 95 fL (80-97); Mean Platelet Volume 8.8 fL (7.4-10.4); Nucleated Red Blood Cells % 0.1; Platelet Count 204 10^3/uL (150-450); Red Blood Count 3.73 10^6 /uL (3.70-4.87); Red Cell Distribution Width 13 % (10-15); White Blood Count 5.3 10^3/uL (3.5-10.8)
[2020-05-05 03:04] LABS: INR 1.05 (0.82-1.09)
[2020-05-05 03:13] LABS: Albumin 3.8 g/dL (3.2-5.2); Albumin/Globulin Ratio 1.7 (1-3); BUN/Creatinine Ratio 20.6 (8-20); Calcium 9.7 mg/dL (8.6-10.3); EGFR African American 61.9 (>60); EGFR Non-African American 51.1 (>60); Globulin 2.2 g/dL (2-4); Potassium 3.9 mmol/L (3.5-5.0); Total Bilirubin 0.5 mg/dL (0.2-1.0)
[2020-05-05] MEDS ORDERED: Enoxaparin 40 MG/0.4 ML SYR SUBCUT SCH ×2 (10:00→15:30)
[2020-05-05] MEDS ORDERED: NF:IPRATROPIUM BR (NF)0.03% NASAL 1 SPRAY BTL BOTH NARES PRN (10:58)
[2020-05-05 11:07] LABS: TSH Ultra Thyroid Stim Horm 6.06 mcIU/mL (0.34-5.60)
[2020-05-05] MEDS ORDERED: Regadenoson 0.4 MG/5 ML SYRINGE ONE ×2 (12:07→13:30)
[2020-05-05 12:59] LABS: HDL Cholesterol 27.7 mg/dL
[2020-05-05] MEDS ORDERED: Aminophylline 25 MG/ML VIAL ONE (13:30)
[2020-05-05] MEDS ORDERED: Mometasone 220 MCG MDI INH PRN (14:42)
[2020-05-05] MEDS: Polyethylene Glycol 3350 17 GM PACKET PO PRN (15:45)
[2020-05-05] MEDS ORDERED: Senna TAB 8.6 mg TAB PO SCH ×2 (18:00→21:00)
[2020-05-06] MEDS: Polyethylene Glycol 3350 17 GM PACKET PO PRN (08:49)
[2020-05-06 09:00] LABS: ABS Eosinophils 0.4 10^3/ul (0-0.6); ABS Lymphocytes 1.5 10^3/ul (1.0-4.8); ABS Monocytes 0.6 10^3/ul (0-0.8); ABS Neutrophils 2.5 10^3/ul (1.5-7.7); Eosinophil % 7.3 %; Hematocrit 36 % (35-47); Hemoglobin 12.6 g/dL (12.0-16.0); Lymphocyte % 29.8 %; Mean Corpuscular HGB Conc 35 g/dL (31-36); Mean Corpuscular Hemoglobin 33 pg (27-31); Mean Corpuscular Volume 94 fL (80-97); Mean Platelet Volume 8.9 fL (7.4-10.4); Nucleated Red Blood Cells % 0.1; Platelet Count 202 10^3/uL (150-450); Red Blood Count 3.88 10^6 /uL (3.70-4.87); Red Cell Distribution Width 14 % (10-15); White Blood Count 4.9 10^3/uL (3.5-10.8)
[2020-05-06] MEDS ORDERED: Aspirin EC 81 mg TAB.EC (enteric coated) PO SCH (09:00)
[2020-05-06 09:16] LABS: CO2 Carbon Dioxide 22 mmol/L (22-32); Calcium 9.3 mg/dL (8.6-10.3); Chloride 108 mmol/L (101-111); Sodium 138 mmol/L (135-145)
[2020-05-06 09:20] LABS: Anion Gap 8 mmol/L (2-11)
[2020-05-06 09:22] LABS: BUN/Creatinine Ratio 19.2 (8-20); Blood Urea Nitrogen 15 mg/dL (6-24); EGFR African American 84.3 (>60); EGFR Non-African American 69.7 (>60); Glucose 103 mg/dL (70-100)
[2020-05-06 11:34] VITALS: BP 140/69
== END 2020-05-06 12:14 | disposition home or self-care (01) ==
LOC: ED 02:17 → MEDTELE 02:17
PROVIDERS: ADMIT Internal Medicine; ATTEND Internal Medicine